=== PATIENT | female | born 1950 | race Caucasian/White ===

== ENCOUNTER → 2023-02-24 01:41 | Outpatient (CLI) | payer MEDICARE, SELFPAY ==
[2023-02-24] MEDS: Barium Sulfate 2% W/V-Creamy Vanilla Smoothie 450 ML BTL 900 ML PO (12:46)
[2023-02-24 13:14] LABS: Abs Immature Grans 0.04 10^3/uL (0.0-0.06); Absolute Basophil Count 0.04 10^3/uL (0.0-0.2); Absolute Lymphocyte Count 1.38 10^3/uL (1.2-3.4); Absolute Monocyte Count 1.03 10^3/uL (0.1-0.8); Absolute Neutrophil Count 6.36 10^3/uL (1.2-6.7); Basophils % 0.4; Eosinophils % 2.2; HGB 9.7 g/dL (11.2-15.7); Immature Grans % 0.4; Lymphocytes % 15.2; MCH 29.7 pg (27.0-33.0); MCHC 33.4 % (32.0-36.0); MCV 89 fL (80-95); MPV 10.3 fL (8.0-11.0); Monocytes % 11.4; Neutrophils % 70.4; Platelet Count 208 10^3/uL (130-400); RBC 3.27 10^6/uL (3.93-5.22); RDW 14.6 % (11.7-14.6); RDW-SD 47.1 fL; WBC 9.05 10^3/uL (4.4-10.8)
[2023-02-24 13:32] LABS: Iron 28 ug/dL (50-170); Total Iron Binding Capacity 238 ug/dL (250-450); Transferrin Sat 12 % (15-50)
[2023-02-24 14:03] LABS: ALT 68 U/L (14-59); AST 116 U/L (15-37); Alkaline Phosphatase 702 U/L (46-116); Anion Gap 9.4 mmol/L (3-11); BUN 29 mg/dL (7-18); Bilirubin, Total 1.1 mg/dL (0.2-1.0); CO2 25.6 mmol/L (21.0-32.0); CREATININE 1.3 mg/dL (0.55-1.02); Calcium 9.3 mg/dL (8.5-10.1); Chloride 99 mmol/L (98-107); Estimated GFR 43.15 (mL/min/1.73m2); Glucose 123 mg/dL (74-106); Potassium 4.3 mmol/L (3.5-5.1); Sodium 134 mmol/L (136-145); Total Protein 7.2 g/dL (6.4-8.2); Vitamin B12 1438 pg/mL (193-986)
[2023-02-24 14:05] LABS: Ferritin > 2000 ng/mL (8-252); Folate > 20.0 ng/mL (8.6-20.0)
[2023-02-24] MEDS: Omnipaque 350 MG/ML 100 ML BTL IJ (14:42)
[2023-02-24] MEDS: Normal Saline - Diluent 50 ML VIAL IJ (14:42)
--- NOTE | 2023-02-24 15:00 | DI.CT_ITS ---
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 TECHNIQUE: Imaging Protocol: Axial computed tomography images with coronal and sagittal reformatted images were created and reviewed CONTRAST MATERIAL: Intravenous: Omnipaque 350 Contrast volume:100 ml Oral: yes / COMPARISON: No exams were available for comparison FINDINGS: ABDOMEN and PELVIS: Lung Bases: All nodule left lung base. Liver: Innumerable round masses seen throughout the liver. Largest posterior right lobe, proximally 7.5 cm. Gallbladder and biliary tract: No radiodense calculus or dilation. Pancreas: Normal density. No abnormal calcifications or inflammatory process. Ill-defined mass tail of pancreas, abutting the spleen with probable invasion. Measurements approximately 5.2 x 3.2 by 2.7 cm. Splenic vein not well delineated near the hilum. Attenuation of distal portion of splenic damaris eddie. Spleen: Normal size. Areas of low density seen peripherally could represent small splenic infarct. Rounded area of low density at the inferior margin of the spleen could represent measures static di sease. Kidneys: Normal size, contour and axis. No radiodense stones. No obstructive uropathy. No suspicious masses seen. Adrenal glands: No masses seen. Vasculature: Abdominal aorta non-dilated. Soft tissues: Large fatty containing umbilical hernia. Bladder: Mostly obscured by artifact from hip prostheses. Nearly empty. Bowel: No obstruction. No bowel wall thickening. Appendix normal.Duodenal diverticula. Colonic div erticula. Peritoneal cavity: No ascites. No focal collection or mesenteric inflammatory response. Bones: Bilateral hip prostheses create artifact in the pelvis. Advanced degenerative changes in the spine. Reproductive organs: Within normal limits. Lymph nodes: Multiple abnormally enlarged lymph nodes in the region of the lizeth hepatis and around t he celiac axis and SMA as well as para-aortic region.. IMPRESSION:: Ill-defined mass in the tail of the pancreas with invasion into the pancreas an attenua tion of vessels at the splenic hilum. Question of additional splenic metastases versus infarcts.. I nnumerable hepatic metastases. Para-aortic adenopathy. RADIATION DOSE DELIVERED: Total DLP DATA REPOSITORY: All CT scans at this facility are submitted to the National Radiology Data Registry (NRDR) Dose Index Registry (DIR) with the [employer] ([employer]). RADIATION OPTIMIZATION: All CT scans at this facility use at least one of these dose optimization te chniques: automated exposure control; mA and/or kV adjustment per patient size (includes targeted exa ms where dose is matched to clinical indication); or iterative reconstruction.
== END ==
PROVIDERS: PCP Family Medicine; Visit Provider Internal Medicine
DX: D63.8 Anemia in other chronic diseases classified elsewhere (principal); C22.9 Malignant neoplasm of liver, not specified as primary or secondary; R59.0 Localized enlarged lymph nodes; D37.9 Neoplasm of uncertain behavior of digestive organ, unspecified
CPT/HCPCS: 80053; 74177; 82607; 82728; 82746; 83540; 83550; 85025; J3490